=== PATIENT | male | born 1985 | race Asian ===

== ENCOUNTER 2020-06-28 18:00 | Emergency (ER) | payer OTHER, SELFPAY ==
[2020-06-28 18:20] VITALS: BP 144/82; PULSE 77; RESP 18; TEMP 36.4; O2SAT 98
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
[2020-06-28 19:30] VITALS: BP 143/84; PULSE 72; RESP 16; O2SAT 99
== END 2020-06-28 19:33 | disposition home or self-care (01) ==
PROVIDERS: Emergency Provider Emergency Medicine; Family Provider Family Medicine; PCP Family Medicine
DX: S16.1XXA Strain of muscle, fascia and tendon at neck level, initial encounter (principal); S29.019A Strain of muscle and tendon of unspecified wall of thorax, initial encounter; S39.012A Strain of muscle, fascia and tendon of lower back, initial encounter; V89.2XXA Person injured in unspecified motor-vehicle accident, traffic, initial encounter
CPT/HCPCS: 72125; 72128; 72131; 99284

== ENCOUNTER → 2020-11-07 08:42 | Outpatient (CLI) | payer OTHER, SELFPAY ==
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
== END ==
PROVIDERS: PCP Family Medicine; Referring Provider Family Medicine; Visit Provider Family Medicine
DX: M54.9 Dorsalgia, unspecified (principal); M50.31 Other cervical disc degeneration, high cervical region; M48.02 Spinal stenosis, cervical region
CPT/HCPCS: 72141; 72146; 72148

== ENCOUNTER 2020-11-21 07:30 | Outpatient (RCR) | payer OTHER, SELFPAY ==
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
== END 2020-11-27 09:29 | disposition home or self-care (01) ==
LOC: PHYS 07:30
PROVIDERS: PCP Family Medicine; Referring Provider Family Medicine; Visit Provider Family Medicine
DX: M54.2 Cervicalgia (principal); M54.5 Low back pain; V89.2XXA Person injured in unspecified motor-vehicle accident, traffic, initial encounter
CPT/HCPCS: 97010; 97014; 97032; 97110; 97112; 97140; 97162; 97530; G0283